=== PATIENT | female | born 1975 | race Caucasian/White ===

== ENCOUNTER 2019-03-21 12:03 | Day surgery (SDC) | payer OTHER ==
[2019-03-20 17:34] VITALS: BMI 20.5
[2019-03-21] MEDS ORDERED: MIDAZOLAM HCL 2 MG/2 ML SINGLE DOSE VIAL ONE ×3 (12:17→13:19)
[2019-03-21] MEDS ORDERED: DEXAMETHASONE SOD PHOSPHATE 4 MG/1 ML VIAL ONE ×2 (12:17→14:02)
[2019-03-21] MEDS ORDERED: PROPOFOL 20 ML ONE ×2 (12:17→13:19)
[2019-03-21] MEDS ORDERED: oxyCODONE HCL 5 MG TABLET PO PRN ×2 (13:27→14:01)
[2019-03-21] MEDS ORDERED: ONDANSETRON 4 MG/2 ML VIAL IVPUSH PRN ×2 (13:27→14:01)
[2019-03-21] MEDS ORDERED: LACTATED RINGERS SOLUTION 1,000 ML IV SCH (13:30)
--- NOTE | 2019-03-21 13:46 | HP ---
History & Physical Update - Physical Physical: No Change - Assessment Assessment: No Change - Plan Plan: No Change (H&P reviwed , no changes)
[2019-03-21] MEDS ORDERED: ceFAZolin SODIUM 1 GM VIAL ONE (13:48)
[2019-03-21] MEDS ORDERED: ceFAZolin 2 GRAM PREMIX BAG IVPB ONE (13:48)
[2019-03-21] MEDS ORDERED: OXYTOCIN 10 UNITS/ML VIAL ONE (13:57)
[2019-03-21] MEDS ORDERED: IBUPROFEN 600 MG TABLET (FP) PO PRN (14:01)
[2019-03-21] MEDS ORDERED: IBUPROFEN 800 MG/8 ML IJ IVPB PRN (14:01)
[2019-03-21] MEDS ORDERED: ELECTROLYTE-148 SOLN 1,000 ML IV SCH (14:15)
[2019-03-21] MEDS ORDERED: IBUPROFEN 600 MG TABLET (FP) PO ONE (15:46)
--- NOTE | 2019-03-21 15:57 | OP ---
Operative Note - Note: Operative Date: 03/21/19 Operation: missed Findings: cx closed , uterus 10 weeks, , adenexa no masses Surgeon: Rob Barron Anesthesia: General Specimens Removed: POC Estimated Blood Loss (mls): 250 Drains & Tubes with Location: none Blood Volume Replaced (mls): 0 Operative Report Dictated: Yes
[2019-03-21 17:39] VITALS: BP 130/70; PULSE 70; TEMP 98
--- NOTE | 2019-03-22 00:36 | OP ---
DATE OF OPERATION: 03/21/2019 PREOPERATIVE DIAGNOSIS: Missed 11 weeks. POSTOPERATIVE DIAGNOSIS: Missed 11 weeks. PROCEDURE: Suction dilation and curettage. SURGEON: Rob Barron M.D. ANESTHESIA: general anesthesia. ESTIMATED BLOOD LOSS: 250 mL. OPERATION: Patient was taken to operating room, had adequate general anesthesia, into dorsal lithotomy position, examination under anesthesia revealed external genitalia to be normal. Cervix was closed, no lesion. Uterus was 12 weeks size. Adnexa, no masses were palpable. Then, with a weighted speculum in the vagina, anterior lip of the cervix was grasped with a single-toothed tenaculum. Cervix was gradually dilated with Hegar dilator, and then suction curet was inserted into uterine cavity and the contents were suctioned. Then with the smooth curet uterine cavity was curetted, and no more tissue was found. Patient tolerated procedure well, left the OR in good condition. ROB BARRON M.D. [id number]
--- NOTE | 2019-03-22 19:17 | PATH ---
Surgical Pathology Report Patient Name: [facility] Med. Rec. #: [id number] /Age/Gender: 1975 (Age: 44) / F Account: [id number] Location: [facility] SURGICAL Taken: 03/21/2019 Received: 03/21/2019 Reported: 03/22/2019 Physicians: Rob Barron M.D. Specimen(s) Received PRODUCTS OF CONCEPTION Clinical History Missed Final Diagnosis PRODUCTS OF CONCEPTION, SUCTION DILATION AND CURETTAGE: IMMATURE CHORIONIC VILLI AND SOMATIC TISSUE (GROSS EXAMINATION) CONSISTENT WITH PRODUCTS OF CONCEPTION. CHROMOSOMAL STUDIES ARE PENDING AND WILL BE REPORTED SEPARATELY AN ADDENDUM. Electronically Signed Annalee Esteves M.D. Gross Description Received fresh labeled "products of conception," is a 13.0 x 11.5 x 1.4 cm aggregate of ibarra and red soft tissue fragments. Villous tissue and somatic tissue is identified. The identifiable foot measures 0.6 cm from heel to toe. A district representative portion is placed in RPMI solution and sent for chromosomal analysis. An additional district representative portion is submitted in one cassette. /03/21/2019 saudi03/21/2019
== END 2019-03-21 17:00 | disposition home or self-care (01) ==
LOC: JASU-SURG 12:03
PROVIDERS: ATTEND Obstetrics & Gynecology
PROC: 10D17ZZ Extraction of Products of Conception, Retained, Via Natural or Artificial Opening (ICD-10-PCS; principal; 2019-03-21 14:00)
DX: O02.1 Missed abortion (principal); Z3A.11 11 weeks gestation of pregnancy
CPT/HCPCS: 86850; 86900; 86901; 88305-TC; 94760